=== PATIENT | male | born 1975 | race Caucasian/White ===

== ENCOUNTER 2021-01-12 17:05 | Inpatient (IN) | payer OTHER ==
[~2021-01-12] VITALS: Ht 185.4 cm; Wt 120.2 kg
[2021-01-12 17:19] VITALS: BP 129/74
[2021-01-12 21:07] LABS: ABSOLUTE NEUTROPHILS 7.7 thou/uL (1.4-8.2); BASOPHILS 0.6 % (0.0-2.0); EOSINOPHILS 1.4 % (0.0-3.0); HEMATOCRIT 41.2 % (42.0-52.0); LYMPHOCYTES 13.4 % (24.0-44.0); MCH 29.3 pg (26.0-34.0); MCHC 33.9 g/dL (28.0-37.0); MCV 86.4 fL (80.0-100.0); MONOCYTES 9.8 % (1.0-8.0); PLATELET COUNT 279 thou/uL (150-400); POLYS 74.8 % (36.0-66.0); RBC 4.76 mil/uL (4.50-6.00); RDW 12.6 % (10.5-14.5); WBC 10.3 thou/uL (4.0-11.0)
[2021-01-12 21:24] LABS: CALCIUM 8.7 mg/dL (8.5-10.1); CREATININE 1.4 mg/dL (0.7-1.3); POTASSIUM 3.8 mmol/L (3.5-5.1)
[2021-01-12 21:26] LABS: INR 1.12; PROTIME 12.1 Seconds (10.5-12.1)
[2021-01-12] MEDS ORDERED: LIPITOR 20 MG T20 M1 PO (23:46)
[2021-01-12] MEDS ORDERED: NORVASC5 MG PO (23:47)
[2021-01-13] VITALS (7 sets, daily range): BP systolic 116–139; BP diastolic 68–84
--- NOTE | 2021-01-13 06:35 | NUR ---
ADMIT PT ADMITTED TO ROOM 449 FROM ED WITH RIGHT LEG DVT. ON BEDREST VSS, TELEMETRY INTACT READING SR. PT DENIES PAIN AT THIS TIME. ORIENTED TO ROOM, CALL LIGHT SYSTEM AND POC. NPO PENDING POSSIBLE CLOT EXTRACTION. CONTINUE TO MONITOR.
[2021-01-13 07:16] LABS: CREATININE 1.3 mg/dL (0.7-1.3); POTASSIUM 3.8 mmol/L (3.5-5.1)
--- NOTE | 2021-01-13 11:26 | NUR ---
PT ADMITTED RELATED TO DVT. CM REVIEWED CHART AND SPOKE WITH CARE TEAM. CM MET WITH PT AT BEDSIDE THIS DAY. PT APPEARED TO BE A&O X4. CM ROLE INTRODUCED. PT INDICATED HE LIVES IN AN APARTMENT WITH HIS SPOUSE WITH ELEVATOR ACCESS. PT INDICATED HE HAD BEEN INDEPENDNET WITH [employer] AND [employer] FITNESS SPECIALIST. PT INDICATED NO DME OR HH HX. PT INDICATED HE PLANS TO RETURN HOME [facility]. CARE TEAM INDICATED THAT PT IS TO HAVE A THROMBECTOMY WITH [facility] TOMORROW. CM FOLLOWING REGARDING DC PLANNING.
--- NOTE | 2021-01-13 11:58 | NUR ---
ASSUMED PT CARE THIS AM. PT A&OX4, ABLE TO MAKE NEEDS KNOWN. PATIENT IV REMAINS PATENT, HEPARIN INFUSING WITHOUT ISSUE. TITRATING NECESSARY PER FLOW SHEET AND LABS DRAWN. PATIENT IS CONTINENT, USING A URINAL NEEDED. RIGHT LEG SWOLLEN AND PAINFUL WITH WALKING, BUT PATIENT DENIES NO PAIN AT REST. PATIENT IS ON ROOM AIR. PATIENT REMAINS ON TELE. FALL PRECAUTIONS ARE IN PLACE, CALL LIGHT WITHIN REACH.
--- NOTE | 2021-01-14 05:08 | NUR ---
ASSUMED CARE OF PT AT SHIFT CHANGE. PT IS IS AOX4 AND LETS NEEDS BE KNOWN. PT IS UP AD NORM. PT ON HEPARIN GTTS AND APTT WAS NOT THERAPUTIC X 3. MEDICAL DIRECTOR NOTIFIED AND DRIP ADJUSTMENT WERE MADE PER PROTOCOL. PT PLACED NPO AT MIDNIGHT FOR PROCEDURE IN THE AM. PT WAS ABLE TO GET COMFORTABLE AND SLEEP PART OF THE SHIFT. VSS AND NO S/S OF ACUTE DISTRESS. WILL CONTINUE TO MONITOR.
[2021-01-14 07:25] VITALS: BP 123/84
--- NOTE | 2021-01-14 14:53 | NUR ---
PT HAD THROMBECTOMY THIS DAY. CM FOLLOWING REGARDING DC PLANNING NEEDS.
[2021-01-14 15:33] VITALS: BP 117/79
--- NOTE | 2021-01-14 15:39 | NUR ---
ASSUMED PT CARE THIS AM. PT A&OX4, ABLE TO MAKE NEEDS KNOWN. PATIENT REMAINS CONTINENT, USING A URINAL AT BEDSIDE. PATIENT REPORTS NO PAIN. IV PATENT. PATIENT HAD A THROMBECTOMY THIS DAY, RETURNED TO UNIT AROUND 1500. PATIENT IS ON TELE. CALL LIGHT WITHIN REACH.
[2021-01-14] MEDS ORDERED: XARELTO20 MG PO (17:37)
[2021-01-14] MEDS ORDERED: XARELTO15 MG PO (17:37)
[2021-01-14] MEDS ORDERED: HYDROCODON-ACE1 EAC7 PO (17:37)
[2021-01-14] MEDS ORDERED: MELATONIN5 M1 PO (17:37)
[2021-01-14] MEDS ORDERED: ACETAMINOPHEN325 M1 PO (17:37)
[2021-01-14 18:00] VITALS: BP 117/79
== END 2021-01-14 18:29 | disposition home or self-care (01) | DRG 272 ==
LOC: ER 17:05 → 4W 19:06 → ER 19:06 → EROBS 21:16 → 4W 21:16 → EROBS 01-13 01:43 → 4W 01-13 04:22
PROVIDERS: Nurse Practitioner Family; Student in an Organized Health Care Education/Training Program; ADMIT Internal Medicine; ATTEND Internal Medicine
PROC: 067M3ZZ Dilation of Right Femoral Vein, Percutaneous Approach (ICD-10-PCS; principal; 2021-01-14)
PROC: 06CM3ZZ Extirpation of Matter from Right Femoral Vein, Percutaneous Approach (ICD-10-PCS; principal; 2021-01-14)
PROC: B5191ZZ Fluoroscopy of Inferior Vena Cava using Low Osmolar Contrast (ICD-10-PCS; principal; 2021-01-14)
PROC: 06CY3ZZ Extirpation of Matter from Lower Vein, Percutaneous Approach (ICD-10-PCS; principal; 2021-01-14)
DX: I82.491 Acute embolism and thrombosis of other specified deep vein of right lower extremity (principal); I10 Essential (primary) hypertension; G47.00 Insomnia, unspecified; E78.5 Hyperlipidemia, unspecified; Z20.822 Contact with and (suspected) exposure to COVID-19; Z88.0 Allergy status to penicillin
CPT/HCPCS: 10045; 58598; 58600

== ENCOUNTER → 2021-04-08 | Outpatient (CLI) | payer OTHER ==
[~2021-04-08] MED LIST: ACETAMINOPHEN325 M1 PO; HYDROCODON-ACE1 EAC7 PO; LIPITOR 20 MG T20 M1 PO; MELATONIN5 M1 PO; NORVASC5 MG PO; XARELTO15 MG PO; XARELTO20 MG PO
== END ==
LOC: SJCVCIMAG 08:49
PROVIDERS: ATTEND Nuclear Medicine Nuclear Cardiology
DX: I74.3 Embolism and thrombosis of arteries of the lower extremities (principal); M79.604 Pain in right leg